=== PATIENT | male | born 1955 | race African-American/Black ===

== ENCOUNTER 2017-10-16 18:30 | Emergency (ER) | payer OTHER ==
[~2017-10-16] VITALS: Ht 190.5 cm; Wt 120.4 kg
[~2017-10-16 18:30] MED LIST: AMLODIPINE BESY10 MG PO; APRESOLINE25 MG PO; Ambien PO; CLINDAMYCIN HC300 MG PO; CLONIDINE1 EAC2 TD; DECARA50000 UNIT PO; DILAUDID1 MG/ML IV; Dextrose 10% in Wate IV; Dextrose 50% in Wate IV; Folvite PO; GEMFIBROZIL600 MG PO; GLUCAGEN1 MG IM/SC; HYDRALAZINE HCL25 MG PO; HYDROCHLOROTHIA50 MG PO; Heparin Sodium SC; K-DUR20 MEQ PO; LISINOPRIL5 MG PO; METOPROLOL SUCC50 MG PO; Maalox, Mylanta PO; NOVOLOG PE100 UNITS/ SC; Normal Saline,NaCl 0 IV; Norvasc PO; OMEPRAZOLE20 MG PO; PERCOCET 5/31 TABLET PO; Protonix IV; SLOW RELEASE I160 MG PO; TYLENOL REGULA325 MG PO; Theragran PO; Thiamine,Vitamin B1 PO; Zofran IV
[2017-10-16 19:20] LABS: BASOPHIL (%) 0.5 % (0-1); EOSINOPHIL (%) 7.2 % (0-5); EOSINOPHIL COUNT 0.4 K/uL (0-0.3); HEMOGLOBIN 9.2 G/DL (12.5-16.6); IMMATURE GRANULOCYTE (%) 0.2 % (0.0-0.7); LYMPHOCYTE (%) 32.4 % (15-42); LYMPHOCYTE COUNT 1.9 K/uL (1.0-2.8); MCH 27.5 PG (29.0-34.0); MCHC 34.1 G/DL (30.0-36.0); MCV 80.6 FL (86-99); MONOCYTE (%) 13.8 % (3-12); MONOCYTE COUNT 0.8 K/uL (0-0.8); NEUTROPHIL (%) 45.9 % (45-76); NEUTROPHIL COUNT 2.7 K/uL (1.8-6.4); PLATELET COUNT 228 K/uL (156-360); RBC DIS.WIDTH-CV 13.2 % (11.8-14.6); RBC DIS.WIDTH-SD 38.5 % (39-53); RED BLOOD COUNT 3.35 M/uL (4.00-5.50); WHITE BLOOD COUNT 5.9 K/uL (4.1-10.2)
[2017-10-16 19:27] LABS: INTER. NORMALIZED RATIO 1.3
[2017-10-16 19:30] LABS: ALBUMIN 3.5 g/dL (3.2-4.8); CHLORIDE 113 mEq/L (99-109); POTASSIUM 4.3 mEq/L (3.7-5.4); PTT 29.5 SEC (25-37); SODIUM 137 mEq/L (136-147)
[2017-10-16 19:32] LABS: GLUCOSE 112 mg/dL (70-99)
[2017-10-16 19:33] LABS: TOTAL PROTEIN 9.2 g/dL (6.4-8.3)
[2017-10-16 19:34] LABS: TOTAL BILIRUBIN 0.2 mg/dL (0.0-1.0)
[2017-10-16 19:35] LABS: SERUM ETHYL ALCOHOL < 10 mg/dL
[2017-10-16 19:36] LABS: ALKALINE PHOSPHATASE 92 IU/L (3-129); CREATININE 3.3 mg/dL (0.6-1.3); GFR ESTIMATE (CALCULATED) 25 mL/min/ (58.99-99999)
[2017-10-16 19:37] LABS: UREA NITROGEN (BUN) 41 mg/dL (9-23)
[2017-10-16 19:38] LABS: AST (GOT) 15 IU/L (2-34)
[2017-10-16 19:39] LABS: ALT (GPT) 8 IU/L (3-49)
[2017-10-16] MEDS ORDERED: FLEXERIL10 MG PO (20:13)
[2017-10-16] MEDS ORDERED: MOTRIN800 MG PO (20:13)
[2017-10-16 20:26] VITALS: BP 150/70
== END 2017-10-16 20:32 | disposition home or self-care (01) ==
LOC: EME 18:30
PROVIDERS: Emergency Medicine
DX: S16.1XXA Strain of muscle, fascia and tendon at neck level, initial encounter (principal); S06.891A Other specified intracranial injury with loss of consciousness of 30 minutes or less, initial encounter; V43.52XA Car driver injured in collision with other type car in traffic accident, initial encounter; Y92.410 Unspecified street and highway as the place of occurrence of the external cause; N28.9 Disorder of kidney and ureter, unspecified; I10 Essential (primary) hypertension; Z72.0 Tobacco use
CPT/HCPCS: 70450; 72125; 80053; 85025; 85610; 85730; 99281; 99285; G0480